=== PATIENT | female | born 1980 | race Native Hawaiian/Other Pacific Islander ===

== ENCOUNTER 2022-03-19 09:08 | Outpatient (CLI) | payer OTHER ==
[2022-03-19 10:00] LABS: PLATELET COUNT 138 K/uL (152-353)
[2022-03-19 10:20] LABS: POTASSIUM 3.4 mmol/L (3.6-5.2)
== END 2022-03-19 21:28 | disposition home or self-care (01) ==
LOC: LABW 09:08
PROVIDERS: ATTEND Internal Medicine Cardiovascular Disease
DX: Z79.899 Other long term (current) drug therapy (principal)
CPT/HCPCS: 36415; 80053; 80061; 85027

== ENCOUNTER 2022-06-30 08:38 | Outpatient (CLI) | payer OTHER | END 2022-06-30 19:00 | disposition home or self-care (01) | LOC: MAMMO 08:38 | PROVIDERS: ATTEND Physician Assistant | DX: N63.21 Unspecified lump in the left breast, upper outer quadrant (principal) | CPT/HCPCS: G0279 ==

== ENCOUNTER 2022-10-04 16:51 | Outpatient (CLI) | payer OTHER ==
[2022-10-04 17:27] LABS: PLATELET COUNT 184 K/uL (152-353)
[2022-10-04 17:29] LABS: POTASSIUM 3.6 mmol/L (3.6-5.2)
== END 2022-10-04 19:06 | disposition home or self-care (01) ==
LOC: RAD 16:51
PROVIDERS: ATTEND Surgery
DX: Z01.810 Encounter for preprocedural cardiovascular examination (principal); Z01.811 Encounter for preprocedural respiratory examination; Z01.812 Encounter for preprocedural laboratory examination; Z01.818 Encounter for other preprocedural examination; Z79.01 Long term (current) use of anticoagulants
CPT/HCPCS: 36415; 80053; 85027; 93005

== ENCOUNTER 2022-11-16 07:46 | Outpatient (CLI) | payer OTHER | END 2022-11-16 19:05 | disposition home or self-care (01) | LOC: CT 07:46 | PROVIDERS: ATTEND Internal Medicine Hematology & Oncology | DX: C50.912 Malignant neoplasm of unspecified site of left female breast (principal) | CPT/HCPCS: 36415; 82565; 84520; Q9963 ==